=== PATIENT | female | born 1970 | race Caucasian/White ===

== ENCOUNTER 2017-02-03 12:51 | Emergency (ER) | payer MEDICAID ==
[~2017-02-03] VITALS: Ht 152.4 cm; Wt 75.0 kg
[2017-02-03] MEDS ORDERED: BACITRACIN ZINC OINT 500U/GM, 0.9 GM ONE (13:21)
[2017-02-03 15:28] VITALS: BP 133/89
== END 2017-02-03 15:30 | disposition home or self-care (01) ==
LOC: ED 14:26
DX: S63.501A Unspecified sprain of right wrist, initial encounter (principal); S90.112A Contusion of left great toe without damage to nail, initial encounter; S80.212A Abrasion, left knee, initial encounter; I10 Essential (primary) hypertension; F17.200 Nicotine dependence, unspecified, uncomplicated
CPT/HCPCS: 99284

== ENCOUNTER 2018-04-10 18:40 | Emergency (ER) | payer MEDICAID ==
[~2018-04-10] VITALS: Ht 152.4 cm; Wt 79.1 kg
[2018-04-10 18:51] VITALS: BP 144/87
== END 2018-04-10 20:04 | disposition left against medical advice (07) ==
LOC: ED 19:18
DX: M79.89 Other specified soft tissue disorders (principal); Z53.21 Procedure and treatment not carried out due to patient leaving prior to being seen by health care provider

== ENCOUNTER 2018-10-22 09:58 | Emergency (ER) | payer MEDICAID ==
[~2018-10-22] VITALS: Ht 152.4 cm; Wt 78.0 kg
[2018-10-22 10:19] VITALS: BP 176/105
--- NOTE | 2018-10-22 10:35 | NUR ---
PT AMBULATORY FROM [facility] TO [facility] IN [facility] AT THIS TIME
--- NOTE | 2018-10-22 10:49 | NUR ---
TAKEN FOR IMAGING
--- NOTE | 2018-10-22 11:28 | NUR ---
ALL RESULTS BACK AT THIS TIME
== END 2018-10-22 12:04 | disposition home or self-care (01) ==
LOC: ED 11:53
DX: S16.1XXA Strain of muscle, fascia and tendon at neck level, initial encounter (principal); S90.01XA Contusion of right ankle, initial encounter; W05.1XXA Fall from non-moving nonmotorized scooter, initial encounter; Y93.89 Activity, other specified; Y92.89 Other specified places as the place of occurrence of the external cause; Y99.8 Other external cause status
CPT/HCPCS: 72020; 72050; 99283

== ENCOUNTER 2018-12-10 09:42 | Emergency (ER) | payer MEDICAID ==
[~2018-12-10] VITALS: Ht 152.4 cm; Wt 79.3 kg
[2018-12-10 09:46] VITALS: BP 154/91
== END 2018-12-10 11:19 | disposition home or self-care (01) ==
LOC: ED 11:15
DX: J20.9 Acute bronchitis, unspecified (principal); H66.002 Acute suppurative otitis media without spontaneous rupture of ear drum, left ear; Z77.22 Contact with and (suspected) exposure to environmental tobacco smoke (acute) (chronic)
CPT/HCPCS: 71046; 99283

== ENCOUNTER 2018-12-11 04:33 | Emergency (ER) | payer MEDICAID ==
[~2018-12-11] VITALS: Ht 152.4 cm; Wt 79.5 kg
[2018-12-11 04:35] VITALS: BP 148/88
[2018-12-11] MEDS ORDERED: ONDANSETRON ODT 4 MG ONE (04:59)
[2018-12-11] MEDS ORDERED: ONDANSETRON ODT 4 MG PO ONE (05:00)
--- NOTE | 2018-12-11 05:08 | NUR ---
pt medicated for nausea per oct.
[2018-12-11 05:33] LABS: BASOPHILS # (AUTO) 0.18 x10^3/uL (0-0.1); BASOPHILS % (AUTO) 2 % (0-1); EOSINOPHILS % (AUTO) 4 % (1-7); LYMPHOCYTES # (AUTO) 1.77 x10^3/uL (1-3.4); LYMPHOCYTES % (AUTO) 21 % (22-44); MD NO; MEAN CORPUSCULAR HEMOGLOBIN 28.5 pg (27.0-34.8); MEAN CORPUSCULAR HGB CONC 33.5 g/dL (32.4-35.8); MEAN PLATELET VOLUME 7.6 fL (7.4-10.4); MONOCYTES # (AUTO) 0.57 x10^3/uL (0.2-0.8); MONOCYTES % (AUTO) 7 % (2-9); NEUTROPHILS # (AUTO) 5.64 x10^3/uL (1.8-6.8); NEUTROPHILS % (AUTO) 67 % (42-75); PLATELET COUNT 425 x10^3/uL (130-400); RED BLOOD COUNT 4.78 x10^6/uL (3.82-5.3); RED CELL DISTRIBUTION WIDTH 15.3 % (9.6-15.2)
[2018-12-11 05:43] LABS: ALANINE AMINOTRANSFERASE 24 U/L (12-78); ALBUMIN 3.2 g/dL (3.4-5.0); ANION GAP 8 mmol/L (5-15); CALCIUM 8.8 mg/dL (8.5-10.1); CHLORIDE 105 mmol/L (98-107); CREATININE 0.77 mg/dL (0.55-1.02)
[2018-12-11 05:48] LABS: ALKALINE PHOSPHATASE 107 U/L (45-117); TOTAL PROTEIN 7.1 g/dL (6.4-8.2)
[2018-12-11 05:50] LABS: BILIRUBIN,TOTAL 0.2 mg/dL (0.2-1.0)
== END 2018-12-11 06:55 | disposition home or self-care (01) ==
LOC: ED 05:10
DX: R11.2 Nausea with vomiting, unspecified (principal); T36.0X5A Adverse effect of penicillins, initial encounter; Y92.9 Unspecified place or not applicable
CPT/HCPCS: 36415; 80053; 84703; 85025; 99283; Q0162

== ENCOUNTER 2019-06-29 10:53 | Emergency (ER) | payer SELFPAY ==
[~2019-06-29] VITALS: Ht 152.4 cm; Wt 80.3 kg
[2019-06-29] MEDS ORDERED: SODIUM CHLORIDE FLUSH 10ML SYR IVF ONE (11:30)
[2019-06-29 11:51] LABS: BASOPHILS # (AUTO) 0.11 x10^3/uL (0-0.1); BASOPHILS % (AUTO) 1 % (0-1); EOSINOPHILS # (AUTO) 0.34 x10^3/uL (0-0.4); EOSINOPHILS % (AUTO) 4 % (1-7); LYMPHOCYTES # (AUTO) 2.24 x10^3/uL (1-3.4); LYMPHOCYTES % (AUTO) 25 % (22-44); MD NO; MEAN CORPUSCULAR HEMOGLOBIN 27.9 pg (27.0-34.8); MEAN CORPUSCULAR VOLUME 87.3 fL (80-100); MEAN PLATELET VOLUME 7.4 fL (7.4-10.4); MONOCYTES # (AUTO) 0.73 x10^3/uL (0.2-0.8); MONOCYTES % (AUTO) 8 % (2-9); NEUTROPHILS # (AUTO) 5.38 x10^3/uL (1.8-6.8); NEUTROPHILS % (AUTO) 61 % (42-75); PLATELET COUNT 506 x10^3/uL (130-400); RED BLOOD COUNT 4.23 x10^6/uL (3.82-5.3)
[2019-06-29 12:16] LABS: ALBUMIN 3.4 g/dL (3.4-5.0); CALCIUM 8.8 mg/dL (8.5-10.1); CHLORIDE 107 mmol/L (98-107)
[2019-06-29 12:17] LABS: CREATININE 0.73 mg/dL (0.55-1.02)
[2019-06-29 12:24] LABS: ANION GAP 4 mmol/L (5-15)
--- NOTE | 2019-06-29 12:44 | NUR ---
Pt to room from [facility], ambulatory with steady gait.
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
--- NOTE | 2019-06-29 13:05 | NUR ---
ERP AT BEDSIDE FOR EVALUATION
[2019-06-29] MEDS ORDERED: MAALOX/HYOSCYAMINE/LIDOCAINE 45 ML BTL ONE (13:26)
--- NOTE | 2019-06-29 13:29 | NUR ---
PT MEDICATED NOTED IN [facility] PER MD ORDER FOR 02/11 ABD PAIN. IV HELD AT THIS TIME PER DR. BUTLER. PT UPDATED ON POC, AWAITING CT. CALL LIGHT IN REACH. VSS. BP IMPROVED. SIGNIFICANT OTHER AT BEDSIDE.
[2019-06-29] MEDS ORDERED: MAALOX/HYOSCYAMINE/LIDOCAINE 45 ML BTL PO ONE (13:30)
--- NOTE | 2019-06-29 13:35 | NUR ---
PT IN CT
--- NOTE | 2019-06-29 13:46 | NUR ---
PT BACK FROM CT, NAD NOTED. RESTING COMFORTABLY. CALL LIGHT IN REACH
[2019-06-29 14:17] LABS: ALANINE AMINOTRANSFERASE 25 U/L (12-78); ALBUMIN 3.5 g/dL (3.4-5.0); BILIRUBIN, DIRECT < 0.1 mg/dL (0.1-0.2)
[2019-06-29 14:19] LABS: ALKALINE PHOSPHATASE 98 U/L (45-117); TOTAL PROTEIN 7.3 g/dL (6.4-8.2)
[2019-06-29 14:23] LABS: BILIRUBIN,TOTAL < 0.1 mg/dL (0.2-1.0)
--- NOTE | 2019-06-29 14:23 | NUR ---
ERP AT BEDSIDE DISCUSSING POC WITH PT
--- NOTE | 2019-06-29 14:49 | NUR ---
PT RESTING IN POSITION OF COMFORT, DOZING INTERMITTENTLY. DENIES NEED TO USE RESTROOM. RATES PAIN 10/12 "IT'S BETTER NOW, THANK YOU." DENIES NAUSEA. AWAITING RECHECK. CALL LIGHT IN REACH. FALL PRECAUTIONS IN PLACE. VSS. BP CONTINUES TO IMPROVE.
--- NOTE | 2019-06-29 15:00 | NUR ---
PT UP FOR RECHECK
--- NOTE | 2019-06-29 15:30 | NUR ---
ERP AT BEDSIDE FOR RECHECK, DISCUSSING POC WITH PT. AWAITING CHART FROM ERP FOR DISCHARGE.
[2019-06-29 15:58] VITALS: BP 143/95
== END 2019-06-29 16:00 | disposition home or self-care (01) ==
LOC: ED 15:45
DX: K29.00 Acute gastritis without bleeding (principal); K42.9 Umbilical hernia without obstruction or gangrene
CPT/HCPCS: 36415; 74176; 80048; 80076; 82040; 83690; 85025; 99284

== ENCOUNTER 2019-07-14 10:56 | Day surgery (SDC) | payer MEDICAID ==
[~2019-07-14] VITALS: Ht 149.9 cm; Wt 79.3 kg
[~2019-07-14 10:56] MED LIST: CALC200T3 PO; FAMO-79 PO; NONE PER PT
[2019-07-14] MEDS ORDERED: DIAZEPAM 5 MG TABLET PO ONE (11:00)
[2019-07-14] MEDS ORDERED: ACETAMINOPHEN 500 MG TABLET PO ONE ×2 (11:00→12:00)
[2019-07-14] MEDS ORDERED: GABAPENTIN 300 MG CAPSULE PO ONE (11:00)
[2019-07-14] MEDS ORDERED: LACTATED RINGERS 1,000 ML IV SCH (11:12)
[2019-07-14] MEDS ORDERED: EPINEPHRINE 1 MG/ML, 1ML ONE (11:41)
[2019-07-14] MEDS ORDERED: BUPIVACAINE/PF 0.25% ONE (11:41)
[2019-07-14 11:48] VITALS: BP 164/91
[2019-07-14] MEDS ORDERED: MIDAZOLAM 1 MG/ML, 2ML ONE (11:48)
[2019-07-14] MEDS ORDERED: FENTANYL PF 250 MCG/5ML ONE (11:48)
[2019-07-14] MEDS ORDERED: DEXAMETHASONE 4 MG/ML, 1ML ONE ×2 (11:52)
[2019-07-14] MEDS ORDERED: CEFAZOLIN 1,000 MG ONE ×2 (11:52)
[2019-07-14] MEDS ORDERED: ROCURONIUM 10MG/ML,5ML ONE (11:52)
[2019-07-14] MEDS ORDERED: PROPOFOL 10 MG/ML, 20ML ONE (11:52)
[2019-07-14] MEDS ORDERED: SUCCINYLCHOLINE 20 MG/ML, 10ML ONE (11:52)
[2019-07-14] MEDS ORDERED: SCOPOLAMINE PATCH, 1.5MG PATCH.TD72 TD ONE (12:00)
[2019-07-14 12:24] LABS: HCG UR SG 1.028 (1.003-1.030)
[2019-07-14] MEDS ORDERED: SUGAMMADEX 200 MG/2 ML IVPush ONE (12:58)
[2019-07-14] MEDS ORDERED: ONDANSETRON 2MG/ML, 2ML ONE (12:58)
[2019-07-14] MEDS ORDERED: hydrALAzine 20 MG/ML, 1ML IV PRN (13:00)
[2019-07-14] MEDS ORDERED: PROMETHAZINE 25 MG/ML, 1ML IV PRN (13:00)
[2019-07-14] MEDS ORDERED: OXYcodone 5 MG/5 ML ORAL.SOL UDC PO PRN ×2 (13:00→13:30)
[2019-07-14] MEDS ORDERED: MIDAZOLAM 1 MG/ML, 2ML IV PRN (13:00)
[2019-07-14] MEDS ORDERED: EPHEDRINE 50 MG/ML, 1ML IVPush PRN (13:00)
[2019-07-14] MEDS ORDERED: ALBUTEROL SULFATE 2.5 MG/3 ML NPPB PRN (13:00)
[2019-07-14] MEDS ORDERED: ONDANSETRON 2MG/ML, 2ML IV PRN (13:00)
[2019-07-14] MEDS ORDERED: DIAZEPAM 5 MG/ML, 2ML IVPush PRN (13:00)
[2019-07-14] MEDS ORDERED: HYDROmorphone 2 MG/ML, 1ML IVPush PRN (13:00)
[2019-07-14] MEDS ORDERED: PROMETHAZINE 25 MG SUPP PR PRN (13:00)
[2019-07-14] MEDS ORDERED: LABETALOL 5MG/ML, 20ML IV PRN (13:00)
[2019-07-14] MEDS ORDERED: FENTANYL PF 100 MCG/2ML IV PRN (13:00)
[2019-07-14] MEDS ORDERED: ONDANSETRON ODT 8 MG PO PRN (13:00)
[2019-07-14] MEDS ORDERED: MEPERIDINE/PF 25MG/ML,1ML IVPush PRN (13:00)
[2019-07-14] MEDS ORDERED: FENTANYL PF 100 MCG/2ML ONE (13:32)
[2019-07-14] MEDS ORDERED: PROMETHAZINE 25 MG/ML, 1ML ONE (13:32)
[2019-07-14] MEDS ORDERED: OXYcodone 5 MG/5 ML ORAL.SOL UDC ONE (14:20)
== END 2019-07-14 16:20 | disposition home or self-care (01) ==
LOC: OUT 10:56
PROVIDERS: ATTEND Surgery
DX: K43.6 Other and unspecified ventral hernia with obstruction, without gangrene (principal); K42.0 Umbilical hernia with obstruction, without gangrene; K21.9 Gastro-esophageal reflux disease without esophagitis; J44.9 Chronic obstructive pulmonary disease, unspecified; I10 Essential (primary) hypertension; M19.90 Unspecified osteoarthritis, unspecified site; F17.210 Nicotine dependence, cigarettes, uncomplicated; Z79.899 Other long term (current) drug therapy; Z98.890 Other specified postprocedural states; Z82.49 Family history of ischemic heart disease and other diseases of the circulatory system
CPT/HCPCS: 49653; 81025; C1781; J0171; J0330; J0690; J1100; J2250; J2405; J2550; J2704; J3010; J3490; J7120; S2900

== ENCOUNTER 2020-02-15 11:05 | Emergency (ER) | payer MEDICAID ==
[~2020-02-15] VITALS: Ht 154.9 cm; Wt 79.7 kg
--- NOTE | 2020-02-15 11:40 | NUR ---
PT PRESENTS TO ED WITH C/O BILATERAL LOWER BACK PAIN X 5 DAYS, RIGHT SIDE WORSE THAN LEFT. PT DENIES ANY OTHER SX. PT DENIES ANY INJURY/TRAUMA. PT SEEN BY SIENNA FATIMA, TO HAVE IMAGING, MEDS AND UA. PT INFORMED OF POC, INSTRUCTED TO PROVIDE CLEAN CATCH URINE SAMPLE. PT HANDED SUPPLIES, UP TO BATHROOM WITH STEADY GAIT AT THIS TIME.
[2020-02-15] MEDS ORDERED: DIAZEPAM 5 MG TABLET ONE (11:44)
[2020-02-15] MEDS ORDERED: KETOROLAC 30 MG/1 ML ONE (11:44)
[2020-02-15] MEDS ORDERED: KETOROLAC 30 MG/1 ML IM ONE (12:00)
[2020-02-15] MEDS ORDERED: DIAZEPAM 5 MG TABLET PO ONE (12:00)
[2020-02-15 12:03] LABS: MICROSCOPIC NOT IND
--- NOTE | 2020-02-15 12:41 | NUR ---
PT SLEEPING ON GURNEY, RESPS EVEN AND UNLABORED. ALL RESULTS BACK, CHART UP FOR RECHECK, AWAITING MD AND DISPO.
[2020-02-15 13:37] VITALS: BP 139/86
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
== END 2020-02-15 13:46 | disposition home or self-care (01) ==
LOC: ED 11:35
DX: M51.35 Other intervertebral disc degeneration, thoracolumbar region (principal); G89.29 Other chronic pain; I10 Essential (primary) hypertension
CPT/HCPCS: 72072; 72110; 81003; 96372; 99284; J1885

== ENCOUNTER 2020-02-19 03:00 | Emergency (ER) | payer MEDICAID ==
[~2020-02-19] VITALS: Ht 149.9 cm; Wt 79.0 kg
[2020-02-19 03:02] VITALS: BP 166/94
[2020-02-19 03:53] LABS: ALANINE AMINOTRANSFERASE 23 U/L (12-78); ALBUMIN 3.6 g/dL (3.4-5.0); ANION GAP 6 mmol/L (5-15); CALCIUM 9.4 mg/dL (8.5-10.1); CHLORIDE 109 mmol/L (98-107); CREATININE 1.05 mg/dL (0.55-1.02)
[2020-02-19 03:56] LABS: ALKALINE PHOSPHATASE 102 U/L (45-117); BILIRUBIN,TOTAL 0.3 mg/dL (0.2-1.0); TOTAL PROTEIN 7.6 g/dL (6.4-8.2)
[2020-02-19 04:00] LABS: BASOPHILS # (AUTO) 0.23 x10^3/uL (0-0.1); BASOPHILS % (AUTO) 2 % (0-1); EOSINOPHILS % (AUTO) 3 % (1-7); LYMPHOCYTES # (AUTO) 2.45 x10^3/uL (1-3.4); LYMPHOCYTES % (AUTO) 25 % (22-44); MD NO; MEAN CORPUSCULAR HEMOGLOBIN 29.3 pg (27.0-34.8); MEAN CORPUSCULAR HGB CONC 33.1 g/dL (32.4-35.8); MEAN CORPUSCULAR VOLUME 88.6 fL (80-100); MEAN PLATELET VOLUME 7.7 fL (7.4-10.4); MONOCYTES # (AUTO) 0.73 x10^3/uL (0.2-0.8); MONOCYTES % (AUTO) 7 % (2-9); NEUTROPHILS % (AUTO) 63 % (42-75); PLATELET COUNT 492 x10^3/uL (130-400); RED CELL DISTRIBUTION WIDTH 15.2 % (9.6-15.2)
--- NOTE | 2020-02-19 06:23 | NUR ---
d/c paperwork given to patient with verbal understanding. patient steadily ambulated out of ER
== END 2020-02-19 06:25 | disposition home or self-care (01) ==
LOC: ED 06:15
DX: M54.6 Pain in thoracic spine (principal); R10.9 Unspecified abdominal pain; M54.5 Low back pain; K59.00 Constipation, unspecified; I10 Essential (primary) hypertension; F17.210 Nicotine dependence, cigarettes, uncomplicated
CPT/HCPCS: 36415; 71046; 74176; 80053; 83690; 85025; 85379; 99285; 99406

== ENCOUNTER 2020-11-09 09:38 | Emergency (ER) | payer MEDICAID ==
[~2020-11-09] VITALS: Ht 154.9 cm; Wt 81.3 kg
[2020-11-09 09:45] VITALS: BP 202/101
[2020-11-09 10:31] LABS: BASOPHILS % (AUTO) 1 % (0-1); EOSINOPHILS % (AUTO) 3 % (1-7); LYMPHOCYTES % (AUTO) 23 % (22-44); MEAN CORPUSCULAR HEMOGLOBIN 30.1 pg (27.0-34.8); MEAN CORPUSCULAR HGB CONC 33.7 g/dL (32.4-35.8); MONOCYTES % (AUTO) 7 % (2-9); NEUTROPHILS % (AUTO) 66 % (42-75); PLATELET COUNT 441 x10^3/uL (130-400); RED BLOOD COUNT 4.51 x10^6/uL (3.82-5.3); RED CELL DISTRIBUTION WIDTH 14.8 % (9.6-15.2)
[2020-11-09 10:44] LABS: ALANINE AMINOTRANSFERASE 44 U/L (12-78); ALBUMIN 3.6 g/dL (3.4-5.0); CALCIUM 9.6 mg/dL (8.5-10.1); CHLORIDE 108 mmol/L (98-107); CREATININE 0.81 mg/dL (0.55-1.02)
[2020-11-09 10:46] LABS: ALKALINE PHOSPHATASE 95 U/L (45-117); BILIRUBIN,TOTAL 0.2 mg/dL (0.2-1.0); MD SCAN; TOTAL PROTEIN 7.5 g/dL (6.4-8.2)
[2020-11-09 10:54] LABS: ANION GAP 5 mmol/L (5-15)
--- NOTE | 2020-11-09 11:48 | NUR ---
TASK RN: DC EDUCATION PROVIDED, PT DEMONSTRATES UNDERSTANDING. PT AMBULATED STEADILY TO DC WITH RN.
--- NOTE | 2020-11-09 12:18 | NUR ---
this pt was D/C by another RN
== END 2020-11-09 11:49 | disposition home or self-care (01) ==
LOC: ED 09:53
DX: S90.121A Contusion of right lesser toe(s) without damage to nail, initial encounter (principal); I10 Essential (primary) hypertension; K21.9 Gastro-esophageal reflux disease without esophagitis; Z90.89 Acquired absence of other organs; Z79.899 Other long term (current) drug therapy; X58.XXXA Exposure to other specified factors, initial encounter; Y93.89 Activity, other specified; Y92.89 Other specified places as the place of occurrence of the external cause; Y99.8 Other external cause status
CPT/HCPCS: 36415; 80053; 85025; 99284

== ENCOUNTER 2020-12-29 01:27 | Emergency (ER) | payer MEDICAID ==
[~2020-12-29] VITALS: Ht 149.9 cm; Wt 82.1 kg
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
[2020-12-29 01:59] LABS: MEAN CORPUSCULAR HEMOGLOBIN 30.7 pg (27.0-34.8); MEAN CORPUSCULAR HGB CONC 34.5 g/dL (32.4-35.8); MEAN PLATELET VOLUME 7.1 fL (7.4-10.4); PLATELET COUNT 463 x10^3/uL (130-400); RED BLOOD COUNT 4.75 x10^6/uL (3.82-5.3); RED CELL DISTRIBUTION WIDTH 14.6 % (9.6-15.2)
[2020-12-29 02:10] LABS: ALANINE AMINOTRANSFERASE 35 U/L (12-78); ALBUMIN 3.8 g/dL (3.4-5.0); ANION GAP 5 mmol/L (5-15); CHLORIDE 108 mmol/L (98-107); CREATININE 0.82 mg/dL (0.55-1.02)
[2020-12-29 02:14] LABS: ALKALINE PHOSPHATASE 97 U/L (45-117); BILIRUBIN,TOTAL 0.4 mg/dL (0.2-1.0); TOTAL PROTEIN 7.9 g/dL (6.4-8.2)
[2020-12-29 02:21] LABS: MD YES
[2020-12-29 02:24] LABS: <PLATELET ESTIMATE> INCREASED; BAND#(MANUAL) 0.13 x10^3/uL; BANDS%(MANUAL) 1 % (0-7); BASOS#(MANUAL) 0.13 x10^3/uL (0-0.1); BASOS% (MANUAL) 1 % (0-1); EOS#(MANUAL) 0.13 x10^3/uL (0.0-0.4); EOS% (MANUAL) 1 % (1-7); LYMPH#(MANUAL) 1.79 x10^3/uL (1-3.4); LYMPHS% (MANUAL) 14 % (22-44); METAMYELOCYTES# (MANUAL) 0.26 x10^3/uL (0-0); METAMYELOCYTES% (MANUAL) 2 % (0-1); MONOS#(MANUAL) 1.02 x10^3/uL (0.3-2.7); MONOS% (MANUAL) 8 % (2-9); REACTIVE LYMPHS # (MANUAL) 0.38 x10^3/uL (0-0); REACTIVE LYMPHS % (MANUAL) 3 % (0-0); SEG#(MANUAL) 8.96 x10^3/uL (1.8-6.8); SEGS% (MANUAL) 70 % (42-75)
[2020-12-29 02:25] LABS: LARGE PLATELETS 1+
[2020-12-29 02:26] LABS: <RBC MORPHOLOGY> NORMAL
[2020-12-29 02:38] LABS: MICROSCOPIC AUTO
--- NOTE | 2020-12-29 03:08 | NUR ---
PA at bedside to do pelvic exam with female RN present, PA stated we are still pending some labs and radiology results
[2020-12-29 04:09] VITALS: BP 173/110
--- NOTE | 2020-12-29 04:11 | NUR ---
PA aware of elevated vitals, vitals were similar to those upon arrival, PA stated pt is hemodynamicaly stable and is ok for discharge
== END 2020-12-29 04:12 | disposition home or self-care (01) ==
LOC: ED 02:57
DX: N93.8 Other specified abnormal uterine and vaginal bleeding (principal); R10.84 Generalized abdominal pain; R39.15 Urgency of urination; R00.0 Tachycardia, unspecified; I10 Essential (primary) hypertension; K21.9 Gastro-esophageal reflux disease without esophagitis
CPT/HCPCS: 36415; 74021; 76830; 80053; 81001; 83690; 84703; 85025; 99285

== ENCOUNTER 2021-01-29 03:46 | Emergency (ER) | payer MEDICAID ==
[~2021-01-29] VITALS: Ht 152.4 cm; Wt 82.8 kg
[2021-01-29 03:50] VITALS: BP 166/105
--- NOTE | 2021-01-29 05:10 | NUR ---
PT NOT IN LOBBY WHEN CALLED FOR ROOM.
--- NOTE | 2021-01-29 05:38 | NUR ---
NOT IN LOBBY WHEN CALLED FOR ROOM.
--- NOTE | 2021-01-29 06:03 | NUR ---
PT NOT IN LOBBY WHEN CALLED FOR ROOM. PT LWBS.
== END 2021-01-29 06:05 | disposition left against medical advice (07) ==
LOC: ED 06:00
DX: M25.561 Pain in right knee (principal); Z53.21 Procedure and treatment not carried out due to patient leaving prior to being seen by health care provider

== ENCOUNTER 2021-01-29 16:25 | Emergency (ER) | payer MEDICAID ==
[~2021-01-29] VITALS: Ht 152.4 cm; Wt 81.1 kg
[2021-01-29 16:41] VITALS: BP 158/77
== END 2021-01-29 17:47 | disposition left against medical advice (07) ==
LOC: ED 17:40
DX: M25.561 Pain in right knee (principal); Z53.21 Procedure and treatment not carried out due to patient leaving prior to being seen by health care provider

== ENCOUNTER 2021-03-25 07:02 | Emergency (ER) | payer MEDICAID ==
[~2021-03-25] VITALS: Ht 152.4 cm; Wt 84.3 kg
[2021-03-25 07:04] VITALS: BP 159/90
[2021-03-25] MEDS ORDERED: ONDANSETRON ODT 4 MG ONE (07:23)
--- NOTE | 2021-03-25 07:26 | NUR ---
First contact, pt post op left toe surgery arrives c/o increase pain and redness. Left 4th toe some redness, minor swelling, no red streaking no discharge from wounds. No fever. Medicated with zofran per order. Waiting for labs, wound dressing and dispo. AIDET provided.
[2021-03-25] MEDS ORDERED: ONDANSETRON ODT 4 MG PO ONE (07:30)
[2021-03-25 07:47] LABS: BASOPHILS % (AUTO) 1 % (0-1); EOSINOPHILS % (AUTO) 5 % (1-7); LYMPHOCYTES % (AUTO) 21 % (22-44); MEAN CORPUSCULAR HEMOGLOBIN 29.9 pg (27.0-34.8); MEAN CORPUSCULAR HGB CONC 33.9 g/dL (32.4-35.8); MONOCYTES % (AUTO) 10 % (2-9); NEUTROPHILS % (AUTO) 64 % (42-75); PLATELET COUNT 423 x10^3/uL (130-400); RED BLOOD COUNT 4.37 x10^6/uL (3.82-5.3); RED CELL DISTRIBUTION WIDTH 14.4 % (9.6-15.2)
[2021-03-25 07:59] LABS: ALBUMIN 2.9 g/dL (3.4-5.0); ANION GAP 5 mmol/L (5-15); CALCIUM 9.4 mg/dL (8.5-10.1); CHLORIDE 105 mmol/L (98-107); CREATININE 0.66 mg/dL (0.55-1.02)
[2021-03-25] MEDS ORDERED: NEOSPORIN OINT. PKT 1 PACKET ONE (08:01)
--- NOTE | 2021-03-25 08:08 | NUR ---
EMT with abx oint, adaptix gauze and duong wrap to left foot. Waiting for dispo.
== END 2021-03-25 08:23 | disposition home or self-care (01) ==
LOC: ED 08:12
DX: L03.032 Cellulitis of left toe (principal); I10 Essential (primary) hypertension; K21.9 Gastro-esophageal reflux disease without esophagitis; F17.200 Nicotine dependence, unspecified, uncomplicated; Z90.89 Acquired absence of other organs
CPT/HCPCS: 36415; 80048; 82040; 85025; 99283; Q0162